=== PATIENT | male | born 1965 | race Caucasian/White ===

== ENCOUNTER 2019-02-23 08:13 | Emergency (ER) | payer MEDICAID ==
[~2019-02-23] VITALS: Ht 180.3 cm; Wt 90.0 kg
[2019-02-23 08:18] VITALS: Ht 180.3 cm; Wt 90.0 kg
[2019-02-23 08:39] LABS: BASOPHILS 0.4 % (0-2); EOSINOPHILS 7.9 % (0-7); HEMATOCRIT 49.8 % (42.0-54.0); HEMOGLOBIN 18.5 g/dL (13.5-17.5); IMMATURE GRANULOCYTES 0.4 % (0-5); LYMPHOCYTES 19.7 % (15-50); MCH 30.1 pg (26.0-34.0); MCHC 37.1 g/dL (31.0-37.0); MEAN PLATELET VOLUME 11.9 fL (7.4-10.4); MONOCYTES 6.2 % (2-11); NEUTROPHILS 65.4 % (40-80); PLATELET COUNT 251 10x3/uL (130-400); RBC 6.15 10x6/uL (4.20-6.10); RDW 13.5 % (11.5-14.5); WBC 11.2 10x3/uL (4.8-10.8)
[2019-02-23 08:55] LABS: ALBUMIN 3.8 g/dL (3.4-5.0); ALKALINE PHOSPHATASE 86 U/L (46-116); ALT (SGPT) 26 U/L (10-68); BILIRUBIN - TOTAL 0.49 mg/dL (0.2-1.3); CALC OSMOLALITY 290 mosm/kg (275-300); CALCIUM 8.7 mg/dL (8.5-10.1); CHLORIDE - SERUM 97 mmol/L (98-107); CREATININE - SERUM 1.1 mg/dL (0.6-1.3); POTASSIUM - SERUM 4.4 mmol/L (3.5-5.1); PROTEIN - SERUM 7.1 g/dL (6.4-8.2); SODIUM 135 mmol/L (136-145); UREA NITROGEN 9 mg/dL (7-18); eGFR NON AFRICAN AMERICAN 75 mL/min (90-120)
[2019-02-23 08:59] LABS: GLUCOSE 488 mg/dL (74-106)
[2019-02-23] MEDS ORDERED: GLUCOTROL XL 5 M5 MG PO (13:21)
[2019-02-23] MEDS ORDERED: ZPAK PO (13:21)
[2019-02-23 13:37] VITALS: BP 149/76
== END 2019-02-23 13:38 | disposition home or self-care (01) ==
LOC: D.ER 08:13
PROVIDERS: Family Medicine
DX: J20.9 Acute bronchitis, unspecified (principal); E11.69 Type 2 diabetes mellitus with other specified complication; I10 Essential (primary) hypertension

== ENCOUNTER 2019-03-31 08:58 | Emergency (ER) | payer MEDICAID ==
[~2019-03-31] VITALS: Ht 180.3 cm; Wt 90.0 kg
[~2019-03-31 08:58] MED LIST: GLUCOTROL XL 5 M5 MG PO; ZPAK PO
[2019-03-31 09:02] VITALS: Ht 180.3 cm; Wt 90.0 kg
[2019-03-31] MEDS ORDERED: TRAZODONE HCL150 MG PO (09:03)
[2019-03-31] MEDS ORDERED: PROZAC40 MG PO ×2 (09:03→09:21)
[2019-03-31] MEDS ORDERED: [UNRECOGNIZED DRUG - OTHER] (09:04)
[2019-03-31] MEDS ORDERED: GLUCOTROL XL 1010 MG PO (09:21)
[2019-03-31] MEDS ORDERED: LISINOPRIL5 MG PO (09:21)
[2019-03-31 09:30] VITALS: BP 160/90
== END 2019-03-31 09:31 | disposition home or self-care (01) ==
LOC: D.ER 08:58
DX: E11.9 Type 2 diabetes mellitus without complications (principal); F41.9 Anxiety disorder, unspecified; I10 Essential (primary) hypertension

== ENCOUNTER 2019-10-03 17:08 | Emergency (ER) | payer MEDICAID ==
[~2019-10-03] VITALS: Ht 180.3 cm; Wt 90.9 kg
[~2019-10-03 17:08] MED LIST changes: +GLUCOTROL XL 1010 MG PO; +LISINOPRIL5 MG PO; +PROZAC40 MG PO; +TRAZODONE HCL150 MG PO; +[UNRECOGNIZED DRUG - OTHER]
[2019-10-03 17:21] VITALS: Ht 180.3 cm; Wt 90.9 kg
[2019-10-03] MEDS ORDERED: TORADOL10 MG PO (18:34)
[2019-10-03 19:13] VITALS: BP 138/68
== END 2019-10-03 19:14 | disposition home or self-care (01) ==
LOC: D.ER 17:08
DX: S46.001A Unspecified injury of muscle(s) and tendon(s) of the rotator cuff of right shoulder, initial encounter (principal); E11.40 Type 2 diabetes mellitus with diabetic neuropathy, unspecified; Z79.84 Long term (current) use of oral hypoglycemic drugs

== ENCOUNTER 2019-10-09 20:33 | Emergency (ER) | payer OTHER ==
[~2019-10-09] VITALS: Ht 180.3 cm; Wt 95.0 kg
[~2019-10-09 20:33] MED LIST changes: +TORADOL10 MG PO
[2019-10-09 20:38] VITALS: Ht 180.3 cm; Wt 95.0 kg
[2019-10-09 21:05] LABS: HEMATOCRIT 48.3 % (42.0-54.0); HEMOGLOBIN 16.6 g/dL (13.5-17.5); LYMPHOCYTES 25.5 % (15-50); MCHC 34.4 g/dL (31.0-37.0); MCV 81.5 fL (80.0-100.0); MEAN PLATELET VOLUME 10.9 fL (7.4-10.4); NEUTROPHILS 66.9 % (40-80); PLATELET COUNT 225 10x3/uL (130-400); RBC 5.93 10x6/uL (4.20-6.10); RDW 13.2 % (11.5-14.5); WBC 8.8 10x3/uL (4.8-10.8)
[2019-10-09 21:14] LABS: APTT 28.5 SECONDS (22.8-39.4); PROTIME 13.1 SECONDS (11.6-15.0)
[2019-10-09 21:19] LABS: CALC OSMOLALITY 275 mosm/kg (275-300); CALCIUM 8.4 mg/dL (8.5-10.1); CHLORIDE - SERUM 98 mmol/L (98-107); CREATININE - SERUM 0.8 mg/dL (0.6-1.3); POTASSIUM - SERUM 3.8 mmol/L (3.5-5.1); SODIUM 133 mmol/L (136-145); UREA NITROGEN 6 mg/dL (7-18); eGFR NON AFRICAN AMERICAN > 90 mL/min (90-120)
[2019-10-09 21:24] LABS: GLUCOSE 319 mg/dL (74-106)
[2019-10-09 21:36] LABS: ALBUMIN 3.6 g/dL (3.4-5.0); ALKALINE PHOSPHATASE 58 U/L (30-120); ALT (SGPT) 23 U/L (10-68); BILIRUBIN - TOTAL 0.79 mg/dL (0.2-1.3); CREATINE KINASE 50 UL (21-232); PRO BNP 69 pg/mL (0-125); PROTEIN - SERUM 7.1 g/dL (6.4-8.2); TROPONIN-I < 0.017 ng/mL (0.000-0.060)
--- NOTE | 2019-10-09 21:44 | NUR ---
NOTIFIED CHARGE NURSE AND ATTENDING OF ASSESSMENT RESULTS. DR. HAWKINS NOTIFIED OF ASSESSMENT RESULTS AND BEHAVIOR. PT IS A LOW RISK PER DR. HAWKINS. DR. HAWKINS STATES TO GIVE PT RESOURCES AT DISCHARGE. DISCUSSED RESOURCES WITH PT AND HE VERBALIZED UNDERSTANDING.
[2019-10-09 22:48] VITALS: BP 164/97
== END 2019-10-09 22:49 | disposition home or self-care (01) ==
LOC: D.ER 20:33
PROVIDERS: Surgery
DX: E11.65 Type 2 diabetes mellitus with hyperglycemia (principal); E11.40 Type 2 diabetes mellitus with diabetic neuropathy, unspecified; R06.02 Shortness of breath; R05 Cough; Z77.098 Contact with and (suspected) exposure to other hazardous, chiefly nonmedicinal, chemicals

== ENCOUNTER 2020-03-09 18:30 | Emergency (ER) | payer OTHER ==
[~2020-03-09] VITALS: Ht 180.3 cm; Wt 95.0 kg
[2020-03-09 19:10] VITALS: Ht 180.3 cm; Wt 95.0 kg
[2020-03-09 19:47] LABS: BASOPHILS 0.2 % (0-2); EOSINOPHILS 5.4 % (0-7); HEMATOCRIT 44.7 % (42.0-54.0); HEMOGLOBIN 15.8 g/dL (13.5-17.5); IMMATURE GRANULOCYTES 0.2 % (0-5); LYMPHOCYTES 34.2 % (15-50); MCH 29.4 pg (26.0-34.0); MCHC 35.3 g/dL (31.0-37.0); MCV 83.1 fL (80.0-100.0); MEAN PLATELET VOLUME 11.7 fL (7.4-10.4); MONOCYTES 7.9 % (2-11); NEUTROPHILS 52.1 % (40-80); PLATELET COUNT 212 10x3/uL (130-400); RBC 5.38 10x6/uL (4.20-6.10); WBC 6.4 10x3/uL (4.8-10.8)
[2020-03-09 19:54] LABS: ANION GAP 8.3 mmol/L (8-16); CALCIUM 8.9 mg/dL (8.5-10.1); CARBON DIOXIDE 27.6 mmol/L (21.0-32.0); CREATININE - SERUM 1.1 mg/dL (0.6-1.3); POTASSIUM - SERUM 3.9 mmol/L (3.5-5.1)
[2020-03-09 20:00] LABS: ALBUMIN 3.5 g/dL (3.4-5.0); BILIRUBIN - TOTAL 0.36 mg/dL (0.2-1.3); PROTEIN - SERUM 6.4 g/dL (6.4-8.2)
[2020-03-09] MEDS ORDERED: NEURONTIN 400400 MG PO (22:47)
[2020-03-09] MEDS ORDERED: ULTRAM50 MG PO (22:47)
[2020-03-09] MEDS ORDERED: GLUCOTROL 5 MG T5 MG PO (22:47)
[2020-03-09] MEDS ORDERED: METOPROLOL TART25 MG PO (23:10)
[2020-03-09 23:11] VITALS: BP 155/90
== END 2020-03-09 23:11 | disposition home or self-care (01) ==
LOC: D.ER 18:30
PROVIDERS: Family Medicine
DX: M50.30 Other cervical disc degeneration, unspecified cervical region (principal); Z91.19 Patient's noncompliance with other medical treatment and regimen; E11.65 Type 2 diabetes mellitus with hyperglycemia; I10 Essential (primary) hypertension; Z72.0 Tobacco use; M25.511 Pain in right shoulder